=== PATIENT | male | born 1965 | race Caucasian/White ===

== ENCOUNTER 2017-07-15 15:31 | Observation (INO) | payer OTHER ==
[2017-07-15 20:27] LABS: ADD MAN DIFF? NO
[2017-07-15 20:30] LABS: BASOPHIL # 0.1 10^3/ul (0.0-0.1); BASOPHILS % 0.6 % (0.0-2.0); EOSINOPHILS # 0.4 10^3/ul (0.0-0.5); EOSINOPHILS % 5.2 % (0.0-7.0); HEMATOCRIT 45.6 % (42.0-52.0); HEMOGLOBIN 15.7 g/dl (14.0-18.0); LYMPHOCYTES % 36.3 % (15.0-51.0); MEAN CORPUSCULAR HEMOGLOBIN 30.1 pg (29.0-33.0); MEAN CORPUSCULAR HGB CONC 34.4 g/dl (32.0-37.0); MEAN CORPUSCULAR VOLUME 87.5 fl (82.0-101.0); MONOCYTE # 0.6 10^3/ul (0.3-0.9); MONOCYTES % 7.2 % (0.0-11.0); NEUTROPHIL # 4.2 10^3/ul (1.6-7.5); NEUTROPHILS % 50.5 % (39.0-77.0); PLATELET COUNT 276 10^3/UL (140-415); RED BLOOD COUNT 5.21 10^6/ul (4.70-6.10)
[2017-07-15 20:30] LABS: WHITE BLOOD COUNT 8.3 10^3/ul (4.8-10.8)
[2017-07-15 20:49] LABS: ANION GAP 19 (8-16); BLOOD UREA NITROGEN 18 mg/dl (7-20); CALCIUM 9.9 mg/dl (8.4-10.2); CARBON DIOXIDE 27 mmol/L (21-31); CHLORIDE 104 mmol/L (97-110); CREATININE 0.87 mg/dl (0.61-1.24); GLUCOSE 123 mg/dl (70-220); POTASSIUM 4.2 mmol/L (3.5-5.1); SODIUM 146 mmol/L (135-144)
[2017-07-15 20:50] LABS: ALANINE AMINOTRANSFERASE 44 IU/L (13-69); ALBUMIN 4.9 g/dl (3.3-4.9); ALKALINE PHOSPHATASE 63 IU/L (42-121); ASPARTATE AMINO TRANSFERASE 28 IU/L (15-46); BILIRUBIN,INDIRECT 0.3 mg/dl (0-1.1); BILIRUBIN,TOTAL 0.3 mg/dl (0.2-1.3); TOTAL PROTEIN 8.6 g/dl (6.1-8.1)
[2017-07-15 20:51] LABS: INR 0.89; PARTIAL THROMBOPLASTIN TIME 26.3 Sec (25.0-35.0); PROTIME 12.1 Sec (11.9-14.9); PT RATIO 0.9
[2017-07-15] MEDS ORDERED: ONDANSETRON 4 MG INJ IV ×2 (21:00→21:30)
[2017-07-15] MEDS ORDERED: ACETAMINOPHEN 325 MG TAB PO (21:00)
[2017-07-15] MEDS ORDERED: NACL 0.9% 3 ML SYG IV (21:30)
[2017-07-15] MEDS ORDERED: GLUCOSE GEL 15 GRAM TUBE BUCCAL (21:30)
[2017-07-15] MEDS ORDERED: GLUCOSE GEL 15 GRAM TUBE PO ×2 (21:30)
[2017-07-15] MEDS ORDERED: DEXTROSE 50% 50 ML SYRINGE IV ×2 (21:30)
[2017-07-15] MEDS ORDERED: GLUCAGON 1 MG INJ IM (21:30)
[2017-07-15] MEDS ORDERED: hydrALAzine 20 MG INJ IV (21:30)
[2017-07-15] MEDS ORDERED: ALBUTEROL/IPRATROPIUM (NEB) 3 ML AMP HHN (21:30)
[2017-07-16] MEDS: DEXTROSE 5%-0.45% NACL 1,000 ML IV ×3 (00:42→21:00)
[2017-07-16] MEDS: INSULIN ASPART [NOVOLOG] 3 ML PEN SC ×6 (00:50→21:00)
[2017-07-16] MEDS: ACCU-CHEK XX (02:00)
[2017-07-16 05:25] LABS: ADD MAN DIFF? NO
[2017-07-16 05:32] LABS: BASOPHIL # 0.1 10^3/ul (0.0-0.1); BASOPHILS % 0.6 % (0.0-2.0); EOSINOPHILS # 0.5 10^3/ul (0.0-0.5); EOSINOPHILS % 5.8 % (0.0-7.0); HEMATOCRIT 41.5 % (42.0-52.0); LYMPHOCYTES # 3.1 10^3/ul (0.8-2.9); LYMPHOCYTES % 37.1 % (15.0-51.0); MEAN CORPUSCULAR HEMOGLOBIN 29.7 pg (29.0-33.0); MEAN CORPUSCULAR HGB CONC 33.7 g/dl (32.0-37.0); MEAN CORPUSCULAR VOLUME 87.9 fl (82.0-101.0); MEAN PLATELET VOLUME 10.4 fl (7.4-10.4); MONOCYTE # 0.6 10^3/ul (0.3-0.9); MONOCYTES % 6.8 % (0.0-11.0); NEUTROPHIL # 4.2 10^3/ul (1.6-7.5); NEUTROPHILS % 49.3 % (39.0-77.0); PLATELET COUNT 217 10^3/UL (140-415); RED BLOOD COUNT 4.72 10^6/ul (4.70-6.10)
[2017-07-16 05:32] LABS: WHITE BLOOD COUNT 8.4 10^3/ul (4.8-10.8)
[2017-07-16 05:41] LABS: HEMOGLOBIN A1C 7.2 % (0-5.9)
[2017-07-16 06:03] LABS: ALANINE AMINOTRANSFERASE 39 IU/L (13-69); ALBUMIN 3.9 g/dl (3.3-4.9); ALBUMIN/GLOBULIN RATIO 1.44; ALKALINE PHOSPHATASE 51 IU/L (42-121); ANION GAP 16 (8-16); ASPARTATE AMINO TRANSFERASE 20 IU/L (15-46); BILIRUBIN,INDIRECT 0.3 mg/dl (0-1.1); BILIRUBIN,TOTAL 0.3 mg/dl (0.2-1.3); BLOOD UREA NITROGEN 19 mg/dl (7-20); CALCIUM 9.5 mg/dl (8.4-10.2); CARBON DIOXIDE 27 mmol/L (21-31); CHLORIDE 104 mmol/L (97-110); CHOL/HDL RATIO 3.1 RATIO; CHOLESTEROL 121 mg/dl (100-200); CREATININE 0.83 mg/dl (0.61-1.24); GLUCOSE 181 mg/dl (70-220); HDL CHOLESTEROL 39 mg/dl (28-71); LDL CHOLESTEROL,CALCULATED 42 mg/dl; MAGNESIUM 1.8 mg/dl (1.7-2.5); PHOSPHORUS 4.2 mg/dl (2.5-4.9); POTASSIUM 3.8 mmol/L (3.5-5.1); SODIUM 143 mmol/L (135-144); TOTAL PROTEIN 6.6 g/dl (6.1-8.1); TRIGLYCERIDES 201 mg/dl (0-149)
[2017-07-16] MEDS ORDERED: MEPERIDINE 100 MG INJ (16:18)
[2017-07-16] MEDS ORDERED: LIDOCAINE 2% (SDV) 5 ML INJ ×2 (16:18)
[2017-07-16] MEDS ORDERED: GLYCOPYRROLATE 0.4 MG INJ ×3 (16:18)
[2017-07-16] MEDS ORDERED: NEOSTIGMINE 3 MG/3 ML SYRINGE ×2 (16:18)
[2017-07-16] MEDS ORDERED: ROCURONIUM 50 MG INJ (16:18)
[2017-07-16] MEDS ORDERED: PROPOFOL 20 ML (16:18)
[2017-07-16] MEDS ORDERED: SUCCINYLCHOLINE CHLORIDE 100 MG/5 ML SYG IV (16:18)
[2017-07-16] MEDS ORDERED: CEFAZOLIN 1 GM INJ (16:18)
[2017-07-16] MEDS ORDERED: ROPIVACAINE 0.5 % 30 ML VIAL (19:46)
[2017-07-16] MEDS: INSULIN GLARGINE [LANtus] 3 ML PEN SC (20:00)
[2017-07-16] MEDS: POLYMYXIN/BACITRACIN 1L IRRIG (20:29)
[2017-07-16] MEDS: ATORVASTATIN 10 MG TAB PO (21:00)
[2017-07-16] MEDS: NEOMYC/POLYMYX/BACIT 30 GM OINT (22:11)
[2017-07-16] MEDS ORDERED: LABETALOL HCL 20MG INJ IV (23:00)
[2017-07-16] MEDS ORDERED: OXYCODONE/ACETAMINOPHEN (5/325) TAB PO ×2 (23:00)
[2017-07-16] MEDS ORDERED: DIPHENHYDRAMINE 50 MG INJ IV (23:00)
[2017-07-16] MEDS ORDERED: HYDROmorphONE 1 MG/5 ML IV SYRINGE IV ×2 (23:00)
[2017-07-16] MEDS ORDERED: EPHEDrine SULFATE 50 MG/5 ML SYG IV (23:00)
[2017-07-16] MEDS ORDERED: MIDAZOLAM 1 MG/ML 2 ML INJ IV (23:00)
[2017-07-16] MEDS ORDERED: FENTAnyl 50 MCG/ML VIAL IV ×2 (23:00)
[2017-07-16] MEDS ORDERED: hydrALAzine 20 MG INJ IV (23:00)
[2017-07-16] MEDS ORDERED: METOCLOPRAMIDE 10 MG INJ IV (23:00)
[2017-07-16] MEDS: ONDANSETRON 4 MG INJ IV (23:05)
[2017-07-16] MEDS: MEPERIDINE 25 MG INJ IV (23:05)
[2017-07-16] MEDS: FENTAnyl 50 MCG/ML VIAL IV ×2 (23:05→23:13)
[2017-07-16] MEDS: HYDROmorphONE 1 MG/5 ML IV SYRINGE IV (23:58)
[2017-07-17] MEDS: morphine 2 MG INJ IV ×3 (00:48→10:23)
[2017-07-17] MEDS: DEXTROSE 5%-0.45% NACL 1,000 ML IV ×2 (00:54→07:00)
[2017-07-17] MEDS: ACCU-CHEK XX (01:19)
[2017-07-17] MEDS: HYDROmorphONE 1 MG/ML SYG IV (03:04)
[2017-07-17 05:46] LABS: ADD MAN DIFF? NO
[2017-07-17 05:57] LABS: WHITE BLOOD COUNT 6.5 10^3/ul (4.8-10.8)
[2017-07-17 05:57] LABS: BASOPHILS % 0.6 % (0.0-2.0); EOSINOPHILS # 0.2 10^3/ul (0.0-0.5); EOSINOPHILS % 3.4 % (0.0-7.0); HEMATOCRIT 38.4 % (42.0-52.0); HEMOGLOBIN 13.1 g/dl (14.0-18.0); LYMPHOCYTES # 1.5 10^3/ul (0.8-2.9); LYMPHOCYTES % 23.7 % (15.0-51.0); MEAN CORPUSCULAR HEMOGLOBIN 29.8 pg (29.0-33.0); MEAN CORPUSCULAR HGB CONC 34.1 g/dl (32.0-37.0); MEAN CORPUSCULAR VOLUME 87.3 fl (82.0-101.0); MEAN PLATELET VOLUME 10.6 fl (7.4-10.4); MONOCYTE # 0.4 10^3/ul (0.3-0.9); MONOCYTES % 6.6 % (0.0-11.0); NEUTROPHIL # 4.3 10^3/ul (1.6-7.5); NEUTROPHILS % 65.5 % (39.0-77.0); PLATELET COUNT 183 10^3/UL (140-415); RED CELL DISTRIBUTION WIDTH 13.2 % (11.5-14.5)
[2017-07-17 05:59] LABS: ANION GAP 13 (8-16); BLOOD UREA NITROGEN 11 mg/dl (7-20); CALCIUM 8.7 mg/dl (8.4-10.2); CARBON DIOXIDE 30 mmol/L (21-31); CHLORIDE 104 mmol/L (97-110); CREATININE 0.87 mg/dl (0.61-1.24); GLUCOSE 177 mg/dl (70-220); POTASSIUM 4.3 mmol/L (3.5-5.1); SODIUM 143 mmol/L (135-144)
[2017-07-17] MEDS ORDERED: ONDANSETRON 4 MG INJ IV (07:00)
[2017-07-17] MEDS ORDERED: CEFAZOLIN 1 GM INJ IV (07:00)
[2017-07-17] MEDS ORDERED: morphine 2 MG INJ IV (07:00)
[2017-07-17] MEDS ORDERED: DIPHENHYDRAMINE 25 MG CAP PO (07:00)
[2017-07-17] MEDS ORDERED: INSULIN ASPART [NOVOLOG] 3 ML PEN SC (07:20)
[2017-07-17] MEDS: CEFAZOLIN 2 GM/50 ML (PMX) 50 ML IVPB (07:52)
[2017-07-17] MEDS: HYDROCODONE/APAP (10/325) TAB PO (08:17)
[2017-07-17] MEDS: VENLAFAXINE (XR) 75 MG CAP PO (08:18)
[2017-07-17] MEDS: ARIPIPRAZOLE 10 MG TAB PO (08:20)
[2017-07-17] MEDS: LISINOPRIL 10 MG TAB PO (08:22)
[2017-07-17] MEDS: Insulin NOVOLOG SS MILD Algorithm (SS with meals and bedtime) SC ×4 (08:59→20:37)
[2017-07-17] MEDS: CEFAZOLIN 1 GM/50 ML (PMX) 50 ML IVPB ×2 (14:26→18:08)
[2017-07-17] MEDS: OXYCODONE/ACETAMINOPHEN (5/325) TAB PO ×4 (16:54→21:36)
[2017-07-17] MEDS: ATORVASTATIN 10 MG TAB PO (20:34)
[2017-07-17] MEDS: INSULIN GLARGINE [LANtus] 3 ML PEN SC (20:38)
[2017-07-18] MEDS: OXYCODONE/ACETAMINOPHEN (5/325) TAB PO ×4 (01:34→14:23)
[2017-07-18] MEDS: ACCU-CHEK XX (02:10)
[2017-07-18] MEDS: CEFAZOLIN 1 GM/50 ML (PMX) 50 ML IVPB ×3 (05:38→12:41)
[2017-07-18] MEDS: LISINOPRIL 10 MG TAB PO (09:00)
[2017-07-18] MEDS: ARIPIPRAZOLE 10 MG TAB PO (09:07)
[2017-07-18] MEDS: VENLAFAXINE (XR) 75 MG CAP PO (09:07)
[2017-07-18] MEDS: Insulin NOVOLOG SS MILD Algorithm (SS with meals and bedtime) SC ×2 (09:08→12:49)
[2017-07-18] MEDS ORDERED: RIVAROXABAN 10 MG TABLET PO (17:55)
== END 2017-07-18 15:01 | disposition home health service (06) ==
LOC: E/R 15:31 → MS1 20:33
DX: S82.831A Other fracture of upper and lower end of right fibula, initial encounter for closed fracture (principal); S93.431A Sprain of tibiofibular ligament of right ankle, initial encounter; I10 Essential (primary) hypertension; E11.9 Type 2 diabetes mellitus without complications; Z79.4 Long term (current) use of insulin; E78.5 Hyperlipidemia, unspecified; E66.9 Obesity, unspecified; Z68.34 Body mass index [BMI] 34.0-34.9, adult; F31.9 Bipolar disorder, unspecified; X58.XXXA Exposure to other specified factors, initial encounter
CPT/HCPCS: 27792; 36415; 71045; 73610-RT; 80048; 80053; 80061; 80076; 82306; 82962; 83036; 83735; 84100; 85025; 85610; 85730; 93005; 97116; 97161; 99285-25